=== PATIENT | female | born 1985 | race Two or more races ===

== ENCOUNTER 2023-12-23 09:40 | Outpatient (REF) | payer OTHER, SELFPAY ==
--- NOTE | ~2023-12-23 | US_ITS ---
EXAMINATION: US OBSTETRICAL ULTRASOUND CLINICAL INFORMATION: Uncertain size and dates, rule out spontaneous of , rule out ectopic . 38-year-old, LMP 11/14/2023. COMPARISON: None available. LMP: 11/14/2023. Gestational age by maternal dates is 5 weeks and 4 days. Estimated date of delivery by maternal dates is 08/20/2024. TECHNIQUE: Ultrasound of the maternal pelvis is performed using transabdominal and transvaginal transducers. Transvaginal imaging is performed due to inadequate visualization transabdominally. M-mode Doppler is also performed. FINDINGS: There are 2 intrauterine gestational sacs visualized with visible yolk sac pole is not seen. No subchorionic hemorrhage. SAC A: Mean sac diameter: 0.92 cm (5 weeks 4 days +/- 4 days). ODMINIK (estimated date of delivery): 08/20/2024 +/- 4 days. SAC B: Mean Sac Diameter: 0.83 cm (5 weeks 3 days +/- 4 days). DOMINIK (estimated date of delivery): 08/21/2024 +/- 4 days. MATERNAL ADNEXA: The right maternal ovary measures 2.7 x 4.2 x 3.4 cm. Right corpus luteum. The left maternal ovary measures 4.2 x 2.4 x 2.5 cm. cm. There is no significant maternal adnexal mass. No maternal pelvic ascites. US/US OB <= 14 wk fetus add gest IMPRESSION: 1. Twin intrauterine gestation with size equal to dates of both gestational sacs. No pole visualized yet. Recommend followup ultrasound in 2 weeks 2. No maternal adnexal mass or pelvic ascites.
--- NOTE | ~2023-12-23 | US_ITS ---
EXAMINATION: US OBSTETRICAL ULTRASOUND CLINICAL INFORMATION: Uncertain size and dates, rule out spontaneous of , rule out ectopic . 38-year-old, LMP 11/14/2023. COMPARISON: None available. LMP: 11/14/2023. Gestational age by maternal dates is 5 weeks and 4 days. Estimated date of delivery by maternal dates is 08/20/2024. TECHNIQUE: Ultrasound of the maternal pelvis is performed using transabdominal and transvaginal transducers. Transvaginal imaging is performed due to inadequate visualization transabdominally. M-mode Doppler is also performed. FINDINGS: There are 2 intrauterine gestational sacs visualized with visible yolk sac pole is not seen. No subchorionic hemorrhage. SAC A: Mean sac diameter: 0.92 cm (5 weeks 4 days +/- 4 days). DOMINIK (estimated date of delivery): 08/20/2024 +/- 4 days. SAC B: Mean Sac Diameter: 0.83 cm (5 weeks 3 days +/- 4 days). DOMINIK (estimated date of delivery): 08/21/2024 +/- 4 days. MATERNAL ADNEXA: The right maternal ovary measures 2.7 x 4.2 x 3.4 cm. Right corpus luteum. The left maternal ovary measures 4.2 x 2.4 x 2.5 cm. cm. There is no significant maternal adnexal mass. No maternal pelvic ascites. US/US OB pelvic and transvaginal IMPRESSION: 1. Twin intrauterine gestation with size equal to dates of both gestational sacs. No pole visualized yet. Recommend followup ultrasound in 2 weeks 2. No maternal adnexal mass or pelvic ascites.
== END 2023-12-23 09:41 | disposition home or self-care (01) ==
LOC: HO.UMASIMG 09:40
PROVIDERS: Visit Provider Family Medicine
DX: O26.891 Other specified pregnancy related conditions, first trimester (principal); O09.521 Supervision of elderly multigravida, first trimester; R10.2 Pelvic and perineal pain; Z3A.01 Less than 8 weeks gestation of pregnancy
CPT/HCPCS: 76801; 76802; 76817